=== PATIENT | male | born 1950 | race Caucasian/White ===

== ENCOUNTER 2018-12-20 19:12 | Inpatient (IN) | payer OTHER, MEDICARE ==
[2018-12-20] MEDS ORDERED: SODIUM CHLORIDE 0.9% 1,000 ML IV STA (19:21)
[2018-12-20 19:22] LABS: Glucose,Whole Blood 136 mg/dL (75-99)
--- NOTE | 2018-12-20 19:24 | ED ---
Neuro HPI - General Stated Complaint: Stroke Symptoms Time Seen by Provider: 12/20/18 19:18 Source: RN notes reviewed, old records reviewed - History of Present Illness Is the patient presenting with stroke symptoms?: Yes -: hour(s) (3) Initial Comments: This is a 60-year-old male the ER for evaluation of possible CVA history of CVA. Patient's brought in by EMS with apparent cause of slurred speech and facial droop. Symptoms about 2 hours prior to arrival. Patient currently has no worsening or change in symptoms. Same symptoms. Patient does have history of CVA per patient. Patient is relatively poor strain, denying headache now denying any trauma. Location: speech, right face History of same: Yes (CVA, different symptoms) Place: home Severity: mild Improves With: none Worsens With: none On Anticoagulants: Yes Context: gradual onset Associated Symptoms: denies other symptoms Treatments Prior to Arrival: none - Related Data Allergies/Adverse Reactions: Allergies Allergy/AdvReac Type Severity Reaction Status Date / Time Penicillins Allergy Unknown Verified 12/20/18 19:26 Review of Systems ROS Statement: Those systems with pertinent positive or pertinent negative responses have been documented in the HPI. ROS Other: All systems not noted in ROS Statement are negative. General Exam - General Exam Comments Initial Comments: NIH of 2 General appearance: alert, in no apparent distress Head exam: Present: atraumatic, normocephalic, normal inspection Eye exam: Present: normal appearance, PERRL, EOMI. Absent: scleral icterus, conjunctival injection, periorbital swelling ENT exam: Present: normal exam, mucous membranes moist Neck exam: Present: normal inspection. Absent: tenderness, meningismus, lymphadenopathy Respiratory exam: Present: normal lung sounds bilaterally. Absent: respiratory distress, wheezes, rales, rhonchi, stridor Cardiovascular Exam: Present: regular rate, normal rhythm, normal heart sounds. Absent: systolic murmur, diastolic murmur, rubs, gallop, clicks GI/Abdominal exam: Present: soft, normal bowel sounds. Absent: distended, tenderness, guarding, rebound, rigid Extremities exam: Present: normal inspection, full ROM, normal capillary refill. Absent: tenderness, pedal edema, joint swelling, calf tenderness Back exam: Present: normal inspection Neurological exam: Present: alert, oriented X3, CN II-XII intact Psychiatric exam: Present: normal affect, normal mood Skin exam: Present: warm, dry, intact, normal color. Absent: rash Stroke MDM - Lab Data Result diagrams: 12/20/18 19: Lab Results 12/20/18 12/20/18 12/20/18 Range/Units 19:20 19:22 19:22 PT 9.8 (9.0-12.0) sec INR 0.9 (<1.2) APTT 26.7 (22.0-30.0) sec Sodium 138 (137-145) mmol/L Potassium 4.1 (3.5-5.1) mmol/L Chloride 103 (98-107) mmol/L Carbon Dioxide 24 (22-30) mmol/L Anion Gap 11 mmol/L BUN 21 H (9-20) mg/dL Creatinine 1.05 (0.66-1.25) mg/dL Est GFR (CKD-EPI)AfAm 84 (>60 ml/min/1.73 sqM) Est GFR (CKD-EPI)NonAf 73 (>60 ml/min/1.73 sqM) Glucose 149 H (74-99) mg/dL POC Glucose (mg/dL) 136 H (75-99) mg/dL POC Glu Helper Coordinator ID Viviana Burris Calcium 9.6 (8.4-10.2) mg/dL Total Bilirubin 1.1 (0.2-1.3) mg/dL AST 29 (17-59) U/L ALT 26 (21-72) U/L Alkaline Phosphatase 72 (38-126) U/L Troponin I (0.000-0.034) ng/mL Total Protein 7.8 (6.3-8.2) g/dL Albumin 4.7 (3.5-5.0) g/dL 12/20/18 Range/Units 19:22 PT (9.0-12.0) sec INR (<1.2) APTT (22.0-30.0) sec Sodium (137-145) mmol/L Potassium (3.5-5.1) mmol/L Chloride (98-107) mmol/L Carbon Dioxide (22-30) mmol/L Anion Gap mmol/L BUN (9-20) mg/dL Creatinine (0.66-1.25) mg/dL Est GFR (CKD-EPI)AfAm (>60 ml/min/1.73 sqM) Est GFR (CKD-EPI)NonAf (>60 ml/min/1.73 sqM) Glucose (74-99) mg/dL POC Glucose (mg/dL) (75-99) mg/dL POC Glu Helper Coordinator ID Calcium (8.4-10.2) mg/dL Total Bilirubin (0.2-1.3) mg/dL AST (17-59) U/L ALT (21-72) U/L Alkaline Phosphatase (38-126) U/L Troponin I 0.013 (0.000-0.034) ng/mL Total Protein (6.3-8.2) g/dL Albumin (3.5-5.0) g/dL - NIH Stroke Scale 1a. Level of Consciousness: (0) alert 1b. LOC Questions: (0) answers correctly 1c. LOC Commands: (0) performs tasks correctly 2. Best Gaze: (0) normal 3. Visual: (0) no visual loss 4. Facial Palsy: (2) partial paralysis 5a. Motor Arm Left: (0) no drift 5b. Motor Arm Right: (0) no drift 6a. Motor Leg Left: (0) no drift 6b. Motor Leg Right: (0) no drift 7. Limb Ataxia: (0) absent 8. Sensory: (0) normal 9. Best Language: (0) no aphasia 10. Dysarthria: (0) normal 11. Extinction/Inattention: (0) no abnormality - Thrombolytic Inclusion/Exclusion Thrombolytic Inclusion Criteria: Ischemic Stroke Onset< 3h - Medical Decision Making 60 male with history of CVA presenting with recurrent CVA here today. Patient be admitted for medical management evaluation by neurology, aspirin. - Radiology Data Radiology results: report reviewed (CT brain CTA had not negative for acute disease), image reviewed - EKG Data -: EKG Interpreted by Me (EKG shows sinus rhythm rate of 75, [place] 106, QRS 90, QTc 477) Course Vital Signs 12/20/18 12/20/18 12/20/18 19:17 19:25 19:40 Temperature 97.6 F Pulse Rate 82 75 82 Respiratory 18 18 20 Rate Blood Pressure 175/110 165/96 164/108 O2 Sat by Pulse 96 98 96 Oximetry 12/20/18 12/20/18 12/20/18 19:55 20:10 20:25 Temperature Pulse Rate 78 70 70 Respiratory 18 18 18 Rate Blood Pressure 162/96 155/91 153/96 O2 Sat by Pulse 96 96 97 Oximetry - Reevaluation(s) Reevaluation #1: 12/20/18 20:39 Medical records reviewed Reevaluation #2: 12/20/18 20:39 Code stroke page on arrival Focused neurosurgery 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
[2018-12-20 19:46] LABS: Albumin 4.7 g/dL (3.5-5.0); Calcium 9.6 mg/dL (8.4-10.2); Potassium 4.1 mmol/L (3.5-5.1); Total Bilirubin 1.1 mg/dL (0.2-1.3); Total Protein 7.8 g/dL (6.3-8.2)
[2018-12-20 19:48] LABS: INR 0.9 (<1.2); Partial Thromboplastin Time 26.7 sec (22.0-30.0); Prothrombin Time 9.8 sec (9.0-12.0)
--- NOTE | 2018-12-20 19:54 | CT ---
EXAMINATION TYPE: CT brain wo con for TPA DATE OF EXAM: 12/20/2018 COMPARISON: 09/03/2009 HISTORY: Neuro deficits. CT DLP: 1220 mGycm Automated exposure control for dose reduction was used. FINDINGS: There is some cerebral cortical atrophy. There is mild patchy hypodensity in the white matter of both frontal lobes and left parietal lobe. There is no midline shift. There is no sign of intracranial he morrhage. The calvarium is intact. IMPRESSION: CEREBRAL ATROPHY AND WHITE MATTER ISCHEMIA. NO ACUTE INTRACRANIAL ABNORMALITY. THERE IS SOME PROGRESS ION COMPARED TO OLD EXAM.
--- NOTE | 2018-12-20 20:14 | XR ---
EXAMINATION TYPE: XR chest 1V portable DATE OF EXAM: 12/20/2018 COMPARISON: 09/03/2009 HISTORY: Facial droop TECHNIQUE: Single frontal view of the chest is obtained. FINDINGS: Heart appears slightly enlarged. There is coarsening of the lung markings. There is mild p ulmonary congestion. There are chest leads. There is no definite pleural effusion. Bony thorax appear s intact. IMPRESSION: Pulmonary fibrotic changes. No acute lung disease. No change compared to old exam.
[2018-12-20 20:48] LABS: Basophils % (A) 0 %; Eosinophils # (A) 0.1 k/uL (0-0.7); Eosinophils % (A) 1 %; HGB 15.7 gm/dL (13.0-17.5); Lymphocytes # (A) 1.5 k/uL (1.0-4.8); Lymphocytes % (A) 17 %; MCH 33.7 pg (25.0-35.0); MCHC 34.2 g/dL (31.0-37.0); MCV 98.8 fL (80.0-100.0); Monocytes # (A) 0.4 k/uL (0-1.0); Monocytes % (A) 5 %; Neutrophils # (A) 7.1 k/uL (1.3-7.7); Neutrophils % (A) 76 %; Platelet Count 206 k/uL (150-450); RBC 4.66 m/uL (4.30-5.90); RDW 14.3 % (11.5-15.5); WBC 9.3 k/uL (3.8-10.6)
--- NOTE | 2018-12-20 20:49 | CT ---
EXAMINATION TYPE: CT angio head neck DATE OF EXAM: 12/20/2018 HISTORY: Neuro deficits. COMPARISON: None CT DLP: 467.8 mGycm. Automated Exposure Control for Dose Reduction was Utilized. TECHNIQUE: CTA scan of the neck is performed with IV Contrast, patient injected with 50ml mL of Isov ue 370, axial images are obtained, coronal and sagittal reformatted images are reviewed. Three-D christina nstructed images are created on an independent workstation and reviewed. FINDINGS: There is normal branching pattern of the great vessels on the aortic arch. There is atherosclerotic p laque formation at the aortic arch. There are multiple superior mediastinal lymph nodes that measure up to 1.8 cm. There is bilateral arterial flow in the subclavian arteries. There is arterial flow in the common internal and external carotid arteries bilaterally. There is godwin que formation at the carotid artery bifurcations bilaterally and lumen narrowing estimated 50% of the proximal internal carotid arteries. There is arterial flow in both vertebral arteries which are fairly symmetric. There is suboptimal con trast density in the distal vertebral arteries. There is arterial flow in the basilar artery. There is arterial flow in the anterior middle and posterior cerebral arteries. There is arterial flow in the vertebrobasilar artery system. There is significant decreased flow in the left vertebral talha ry distally. There is enlargement of the right posterior communicating artery that measures 5 mm. The re is no mass effect. There is normal contrast opacification of the venous sinuses. IMPRESSION: Atherosclerotic plaque formation. There is approximate 50% stenosis of the origins of the internal carotid arteries bilaterally. There is progression of disease on the right side compared to old exam. There is no significant falk e on the left side carotid artery bifurcation. There is suboptimal evaluation of the distal left vertebral artery. There is possible significant arline nosis or occlusion of the distal left vertebral artery at the C1 level that is a change compared to o ld exam.. 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 No evidenc e of hemodynamic stenosis of the anterior middle and posterior cerebral arteries.
[2018-12-20] MEDS ORDERED: ATORVASTATIN 80 MG TAB PO SCH (21:00)
[2018-12-20] MEDS ORDERED: LORazepam 2 MG/ML INJ IV PRN ×3 (21:06)
[2018-12-20] MEDS ORDERED: THIAMINE 100 MG/ML 2 ML VIAL IM STA (21:06)
[2018-12-20] MEDS: THIAMINE 100 MG TAB PO SCH (21:38)
[2018-12-20] MEDS ORDERED: ASPIRIN 300 MG SUPP RECTAL SCH (23:30)
[2018-12-20] MEDS: SODIUM CHLORIDE 0.9% 1,000 ML IV SCH (23:44)
--- NOTE | 2018-12-20 23:55 | P.HPIM ---
History of Present Illness H&P Date: 12/20/18 Chief Complaint: Facial droop and slurred speech 68-year-old male with history of diabetes and CVA Patient presented to the hospital after experiencing sudden onset slurred s peech, generalized fatigue, and facial droop that his has noticed at around 5:30 PM this evening. Patient reports that he was at his baseline status of health before that. Patient is a very poor historian and his slurred speech is not helping with history taking. His started available at this point during the interview. patient reports sudden onset changes in his speech, and facial droop which she thought this could be a new stroke episode he denies being on any blood thinners he doesn't know his medication list at home but he knows he takes something for hypertension and cholesterol and also he takes aspirin. 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 Neurosurgery felt there is no immediate indications for any intervention at this point recommended to be monitored overnight and to be evaluated by neurology. Because stroke team recommended no thrombolytics at this time due to low NIH score of 2 at the time of evaluation . patient otherwise, denies any fever, chills, coughing, chest pain or shortness of breath. he denies any new onset numbness, tingling or weakness in his extremities. he denies any falling. he denies being on blood thinners. he admits to daily drinking and smoking. Review of Systems Pertinent positives as noted in HPI. All other systems were reviewed and are negative Past Medical History Past Medical History: CVA/TIA, Diabetes Mellitus, Eye Disorder, Hyperlipidemia, Hypertension Additional Past Medical History / Comment(s): hx of diabetes but states he lost weight and no longer is diabetic History of Any Multi-Drug Resistant Organisms: None Reported Past Surgical History: Appendectomy, Hernia Repair, Orthopedic Surgery, Tonsillectomy Additional Past Surgical History / Comment(s): right shoulder rotator cuff and tendon Past Anesthesia/Blood Transfusion Reactions: No Reported Reaction Past Psychological History: No Psychological Hx Reported Smoking Status: Current every day smoker Past Alcohol Use History: Daily Past Drug Use History: Marijuana - Past Family History family Family Medical History: No Reported History Medications and Allergies Home Medications and Allergies Comment(s): suresh does not have med list readily available at this point. he mentioned he takes a blood pressure and cholestrol medications Allergies Allergy/AdvReac Type Severity Reaction Status Date / Time Penicillins Allergy Unknown Verified 12/20/18 20:52 Childhood Physical Exam Vitals: Vital Signs Temp Pulse Pulse Pulse Resp BP BP 12/20/18 22:26 98.0 F 78 20 157/92 12/20/18 22:25 98 F 78 20 12/20/18 21:48 71 18 142/94 12/20/18 21:25 72 18 164/86 12/20/18 20:55 77 18 162/97 12/20/18 20:25 70 18 153/96 12/20/18 20:10 70 18 155/91 12/20/18 19:55 78 18 162/96 12/20/18 19:40 82 20 164/108 12/20/18 19:25 75 18 165/96 12/20/18 19:17 97.6 F 82 18 175/110 BP Pulse Ox 12/20/18 22:26 94 L 12/20/18 22:25 151/92 94 L 12/20/18 21:48 96 12/20/18 21:25 98 12/20/18 20:55 99 12/20/18 20:25 97 12/20/18 20:10 96 12/20/18 19:55 96 12/20/18 19:40 96 12/20/18 19:25 98 12/20/18 19:17 96 Intake and Output 12/20/18 12/20/18 12/21/18 14:59 22:59 06:59 Other: # Voids 0 Weight 86.636 kg Constitutional: No acute distress, conversant, pleasant, slurred speech Eyes: Anicteric sclerae, moist conjunctiva, uvula in midline Pupils equal round reactive to light ENMT: NC/AT Oropharynx clear, no erythema, exudates Neck: Supple, FROM, no masses, or JVD No carotid bruits No thyromegaly Lungs: Clear to auscultation Clear to percussion Normal respiratory effort, no accessory muscle use Cardiovascular: Heart regular in rate and rhythm, No murmurs, gallops, or rubs No peripheral edema Abdominal: Soft Nontender, no guarding, rebound or rigidity Abdomen moving with respiration Normoactive bowel sounds No hepatomegaly, No splenomegaly No palpable mass No abdominal wall hernia noted Skin: Normal temperature, tone, texture, turgor No induration No subcutaneous nodules No rash, lesions No ulcers Extremities: No digital cyanosis No clubbing Pedal pulses intact and symmetrical Radial pulses intact and symmetrical No calf tenderness Psychiatric: Alert and oriented to person, place and time Appropriate affect fair judgment Neuro Muscles Strength 5/5 in all 4 extremities except for left upper extremity with strength of 4/5 in the proximal and distal muscle group Sensation to light touch grossly present throughout Cranial nerves II-XII grossly intact except for left facial droop cranial nerve VII weakness over the left side No focal sensory deficits Cerebellar exam intact [id number] bilaterally, however finger nose testing was impaired over the left side Lymphatics: no palpable cervical or supraclavicular , or inguinal lymph nodes Results CBC & Chem 7: 12/20/18 19:22 12/20/18 19:22 Labs: Abnormal Lab Results - Last 24 Hours (Table) 12/20/18 12/20/18 Range/Units 19:20 19:22 BUN 21 H (9-20) mg/dL Glucose 149 H (74-99) mg/dL POC Glucose (mg/dL) 136 H (75-99) mg/dL Thrombosis Risk Factor Assmnt - Choose All That Apply Any of the Below Risk Factors Present?: No Other Risk Factors: Yes Each Risk Factor Represents 2 Points: Age 61-74 years Thrombosis Risk Factor Assessment Total Risk Factor Score: 2 Thrombosis Risk Factor Assessment Level: Low Risk Assessment and Plan Assessment: 68-year-old male with history of hypertension, CVA, diabetes. Admitted as an inpatient with anticipated length of stay more than 48 hours due to acute stroke, code stroke was activated and TPA was not given due to low NIH score at time of evaluation. Neurosurgery evaluated CT angiogram of the head with no recommendations for any immediate intervention at this point. Plan: Acute ischemic stroke Hypertension Diabetes mellitus Alcohol dependence Hyperlipidemia Coast stroke activated to pain not given due to low NIH score of 2 at time of evaluation Continue with aspirin and statin Nothing by mouth status Speech evaluation PT/OT Neurochecks around the clock Neurology evaluation Check echocardiogram of the heart Follow a.m. labs Hold BP medications for permissive hypertension at this point Verified home meds in a.m. Insulin sliding scale Alcohol withdrawal precautions, IV fluid hydration and thiamine. 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
[2018-12-21 05:35] LABS: Glucose,Whole Blood 124 mg/dL (75-99)
[2018-12-21] MEDS: SODIUM CHLORIDE 0.9% 1,000 ML IV SCH (06:45)
[2018-12-21] MEDS: THIAMINE 100 MG TAB PO SCH (06:45)
[2018-12-21 06:46] LABS: Basophils % (A) 0 %; Eosinophils % (A) 0 %; HCT 40.2 % (39.0-53.0); HGB 13.7 gm/dL (13.0-17.5); Lymphocytes # (A) 0.9 k/uL (1.0-4.8); Lymphocytes % (A) 7 %; MCH 33.4 pg (25.0-35.0); MCHC 34.2 g/dL (31.0-37.0); MCV 97.7 fL (80.0-100.0); Mean Platelet Volume 8.2; Monocytes # (A) 0.5 k/uL (0-1.0); Monocytes % (A) 4 %; Neutrophils % (A) 88 %; Platelet Count 203 k/uL (150-450); RBC 4.11 m/uL (4.30-5.90); RDW 13.6 % (11.5-15.5); WBC 12.4 k/uL (3.8-10.6)
[2018-12-21 06:57] LABS: ALT 25 U/L (21-72); AST 31 U/L (17-59); African American GFR (CKD) >90 (>60 ml/min/1.73 sqM); Albumin 4.4 g/dL (3.5-5.0); Alkaline Phosphatase 60 U/L (38-126); Anion Gap 11 mmol/L; Blood Urea Nitrogen 18 mg/dL (9-20); Calcium 9.1 mg/dL (8.4-10.2); Carbon Dioxide 24 mmol/L (22-30); Chloride 104 mmol/L (98-107); Cholesterol 134 mg/dL (<200); Glucose 117 mg/dL (74-99); HDL Cholesterol 55 mg/dL (40-60); LDL Cholesterol,Calculated 68 mg/dL (0-99); Potassium 3.7 mmol/L (3.5-5.1); Sodium 139 mmol/L (137-145); Total Bilirubin 1.1 mg/dL (0.2-1.3); Total Protein 7.3 g/dL (6.3-8.2); Triglycerides 56 mg/dL (<150)
[2018-12-21] MEDS ORDERED: INSULIN ASPART (NovoLOG) 100 UNIT/ML VIAL SQ SCH (07:30)
[2018-12-21] MEDS ORDERED: MULTIVITAMINS, THERA 1 EACH TAB PO SCH (09:00)
[2018-12-21 09:54] VITALS: RESP 18
--- NOTE | 2018-12-21 10:06 | P.CRDCN ---
History of Present Illness Consult date: 12/21/18 History of present illness: This is a 68-year-old gentleman with history of hypertension, hypercholesterolemia and possible CVA about 6 years ago, suddenly started having generalized weakness and difficulty with speech and swallowing. Paramedics were called and patient was brought to the hospital. The findings were consistent with a left facial droop, dysarthria and difficulty swallowing consistent with acute CVA. Patient is able to move all the extremities. She denies any chest pain. His have significant problem with swallowing. He does have some rhonchi with breathing which could be from aspiration. He denied any chest pain. We're asked to see the patient because of abnormal troponin values. The troponin values aren't consistent with non-ST elevation myocardial infarction. Rule out the possibility of stress-induced cardiomyopathy in the setting of CVA. We're going to get an echocardiogram done. May also consider for anticoagulation therapy, if cleared by neurology. Further recommendations depend upon the current course. A cardiac catheterization may be necessary to rule out underlying ischemic heart disease. Review of Systems As per the chart Past Medical History Past Medical History: CVA/TIA, Diabetes Mellitus, Eye Disorder, Hyperlipidemia, Hypertension Additional Past Medical History / Comment(s): hx of diabetes but states he lost weight and no longer is diabetic History of Any Multi-Drug Resistant Organisms: None Reported Past Surgical History: Appendectomy, Hernia Repair, Orthopedic Surgery, Tonsillectomy Additional Past Surgical History / Comment(s): right shoulder rotator cuff and tendon Past Anesthesia/Blood Transfusion Reactions: No Reported Reaction Past Psychological History: No Psychological Hx Reported Smoking Status: Current every day smoker Past Alcohol Use History: Daily Past Drug Use History: Marijuana - Past Family History family Family Medical History: No Reported History Medications and Allergies Home Medications Medication Instructions Recorded Confirmed Type Aspirin 81 mg PO DAILY 12/21/18 12/21/18 History Cholecalciferol [Vitamin D3 (25 1,000 unit PO DAILY 12/21/18 12/21/18 History Mcg = 1000 Iu)] Cyanocobalamin [Vitamin B-12] 500 mcg PO DAILY 12/21/18 12/21/18 History Hydrochlorothiazide [Hydrodiuril] 25 mg PO DAILY 12/21/18 12/21/18 History Losartan Potassium 100 mg PO DAILY 12/21/18 12/21/18 History Lovastatin [Mevacor] 20 mg PO DAILY 12/21/18 12/21/18 History [place]-3 Fatty Acids/Fish Oil [Fish 2,000 mg PO 12/21/18 History Oil 1,000 mg Softgel] Allergies Allergy/AdvReac Type Severity Reaction Status Date / Time Penicillins Allergy Unknown Verified 12/20/18 20:52 Childhood Physical Exam Vitals: Vital Signs Temp Pulse Pulse Pulse Resp BP BP 12/21/18 08:17 97.0 F L 82 18 145/84 12/21/18 04:00 97.6 F 79 20 150/79 12/21/18 00:00 97.6 F 79 20 155/90 12/20/18 22:26 98.0 F 78 20 157/92 12/20/18 22:25 98 F 78 20 12/20/18 22:00 78 20 12/20/18 21:48 71 18 142/94 12/20/18 21:25 72 18 164/86 12/20/18 20:55 77 18 162/97 12/20/18 20:25 70 18 153/96 12/20/18 20:10 70 18 155/91 12/20/18 19:55 78 18 162/96 12/20/18 19:40 82 20 164/108 12/20/18 19:25 75 18 165/96 12/20/18 19:17 97.6 F 82 18 175/110 BP Pulse Ox 12/21/18 08:17 93 L 12/21/18 04:00 94 L 12/21/18 00:00 97 12/20/18 22:26 94 L 12/20/18 22:25 151/92 94 L 12/20/18 22:00 12/20/18 21:48 96 12/20/18 21:25 98 12/20/18 20:55 99 12/20/18 20:25 97 12/20/18 20:10 96 12/20/18 19:55 96 12/20/18 19:40 96 12/20/18 19:25 98 12/20/18 19:17 96 Intake and Output 12/20/18 12/21/18 12/21/18 22:59 06:59 14:59 Intake Total 800 0 Output Total 300 325 Balance 500 -325 Intake: Intake, IV Titration 800 Amount Sodium Chloride 0.9% 1, 800 000 ml @ 100 mls/hr IV . Q10H [facility] Rx#:[id number] Oral 0 Output: Urine 300 325 Other: Voiding Method Urinal Urinal Urinal # Voids 0 1 Weight 86.636 kg 90.5 kg GENERAL EXAM: Patient is alert and oriented. He appears to be of difficulty swallowing, coughing HEENT: Normocephalic. Normal reaction of pupils, equal size, normal range of extraocular motion. No erythema or exudates in the throat. NECK: No masses, no nuchal rigidity. CHEST: No chest wall deformity. LUNGS: Rhonchi HEART: S1 and S2 normal with no audible mumurs or gallops. Regular rhythm, femorals equal on both sides.. ABDOMEN: No hepatosplenomegaly, normal bowel sounds, no guarding or rigidity. SKIN: No rashes CENTRAL NERVOUS SYSTEM: Patient is a left facial droop. Dysarthric. Moving all extremities EXTREMITIES: No cyanosis, clubbing or edema. Results 12/21/18 06:31 12/21/18 06:31 Cardiac Enzymes 12/20/18 12/20/18 12/21/18 Range/Units 19:22 19:22 01:00 AST 29 (17-59) U/L Troponin I 0.013 0.329 H* (0.000-0.034) ng/mL 12/21/18 12/21/18 Range/Units 06:31 06:31 AST 31 (17-59) U/L Troponin I 0.613 H* (0.000-0.034) ng/mL Coagulation 12/20/18 Range/Units 19:22 PT 9.8 (9.0-12.0) sec APTT 26.7 (22.0-30.0) sec Lipids 12/21/18 Range/Units 06:31 Triglycerides 56 (<150) mg/dL Cholesterol 134 (<200) mg/dL HDL Cholesterol 55 (40-60) mg/dL CBC 12/20/18 12/21/18 Range/Units 19:22 06:31 WBC 9.3 12.4 H (3.8-10.6) k/uL RBC 4.66 4.11 L (4.30-5.90) m/uL Hgb 15.7 13.7 (13.0-17.5) gm/dL Hct 46.0 40.2 (39.0-53.0) % Plt Count 206 203 (150-450) k/uL Comprehensive Metabolic Panel 12/20/18 12/21/18 Range/Units 19:22 06:31 Sodium 138 139 (137-145) mmol/L Potassium 4.1 3.7 (3.5-5.1) mmol/L Chloride 103 104 (98-107) mmol/L Carbon Dioxide 24 24 (22-30) mmol/L BUN 21 H 18 (9-20) mg/dL Creatinine 1.05 0.92 (0.66-1.25) mg/dL Glucose 149 H 117 H (74-99) mg/dL Calcium 9.6 9.1 (8.4-10.2) mg/dL AST 29 31 (17-59) U/L ALT 26 25 (21-72) U/L Alkaline Phosphatase 72 60 (38-126) U/L Total Protein 7.8 7.3 (6.3-8.2) g/dL Albumin 4.7 4.4 (3.5-5.0) g/dL Current Medications Generic Name Dose Route Start Last Admin Trade Name Freq PRN Reason Stop Dose Admin Aspirin 300 mg 12/20/18 23:30 12/20/18 23:56 Aspirin RECTAL 300 mg Q24H STEPHANI Administration Atorvastatin Calcium 80 mg 12/20/18 21:00 12/20/18 21:11 Lipitor PO Not Given HS STEPHANI Sodium Chloride 1,000 mls @ 100 mls/hr 12/20/18 20:45 12/21/18 06:45 Saline 0.9% IV 100 mls/hr .Q10H STEPHANI Administration Insulin Aspart 0 unit 12/21/18 07:30 12/21/18 06:44 Novolog SQ Not Given ACHS STEPHANI Protocol Lorazepam 1 mg 12/20/18 21:06 Ativan IV Q2HR PRN CIWA 8 or 9 Lorazepam 1 mg 12/20/18 21:06 Ativan IV Q1HR PRN CIWA 10 to 15 Lorazepam 2 mg 12/20/18 21:06 Ativan IV 12/22/18 21:06 Q10M PRN CIWA 16 or higher Multivitamins 1 each 12/21/18 09:00 12/21/18 09:55 Theragran PO Not Given DAILY STEPHANI Thiamine HCl 100 mg 12/20/18 17:00 12/21/18 06:45 Vitamin B-1 PO Not Given BID-W/MEALS STEPHANI Intake and Output 12/20/18 12/21/18 12/21/18 22:59 06:59 14:59 Intake Total 800 0 Output Total 300 325 Balance 500 -325 Intake: Intake, IV Titration 800 Amount Sodium Chloride 0.9% 1, 800 000 ml @ 100 mls/hr IV . Q10H [facility] Rx#:[id number] Oral 0 Output: Urine 300 325 Other: Voiding Method Urinal Urinal Urinal # Voids 0 1 Weight 86.636 kg 90.5 kg 12/21/18 06:31 12/21/18 06:31 EKG Interpretations (text) Sinus rhythm Assessment and Plan (1) Non-ST elevation MD (NSTEMI) Current Visit: Yes Status: Acute Code(s): I21.4 - NON-ST ELEVATION (NSTEMI) MYOCARDIAL INFARCTION SNOMED Code(s): 31881358 (2) Essential hypertension Current Visit: Yes Status: Acute Code(s): I10 - ESSENTIAL (PRIMARY) HYPERTENSION SNOMED Code(s): 67539508 (3) Cerebrovascular accident Current Visit: Yes Status: Acute Code(s): I63.9 - CEREBRAL INFARCTION, UNSPECIFIED SNOMED Code(s): 968949281 (4) Hypercholesterolemia Current Visit: Yes Status: Acute Code(s): E78.00 - PURE HYPERCHOLESTEROLEMIA, UNSPECIFIED SNOMED Code(s): 53679920 Plan: At this point I will get an echocardiogram to assess LV function and rule out any wall motion abnormalities. Nitropaste 1 inch every 8 hours will be added. We'll also treat him with beta blockers, aspirin, and also heparin when cleared by neurology. Patient may need a cardiac catheterization to rule out underlying ischemic heart disease
--- NOTE | 2018-12-21 11:24 | MR ---
EXAMINATION TYPE: MR brain wo con DATE OF EXAM: 12/21/2018 COMPARISON: CT brain 12/20/2018 HISTORY: Stroke-no contrast given,patient unable to continue TECHNIQUE: T1-weighted sagittal, T2, FLAIR, and diffusion axial views of the brain are submitted. Th e patient could not continue with the exam and therefore limited study is presented FINDINGS: There is a large area of abnormal signal on diffusion within the left cerebellum extending into the m edulla. Small focus of abnormal signal involving the right cerebellar hemisphere not excluded. Report a medially called to patient's nurse. Mild to moderate generalized degenerative change with both diffuse and focal areas of nonspecific abn ormal signal in the white matter. Findings likely in the basis of remote microvascular ischemia. Craniocervical junction maintained. Sella turcica has a normal appearance. No cerebellopontine angle mass. IMPRESSION: 1. Large area of abnormal signal involving the left cerebellum and small segment of the left posterio r margin of the medulla compatible with acute ischemia. There is also a small focus of abnormal signa l in the right cerebellar hemisphere also suspicious for a small focal area of acute ischemia. Report immediately called to the patient's nurse. 2. Degenerative and nonspecific white matter changes most typical remote microvascular ischemia.
[2018-12-21 11:43] LABS: Glucose,Whole Blood 123 mg/dL (75-99)
[2018-12-21] MEDS ORDERED: SCOPOLAMINE 1.5MG/72HR PATCH TRANSDERM STA (11:57)
--- NOTE | 2018-12-21 12:34 | XR ---
EXAMINATION TYPE: XR chest 1V portable DATE OF EXAM: 12/21/2018 COMPARISON: Prior chest x-ray 12/20/2018 HISTORY: Shortness of breath TECHNIQUE: Single frontal view of the chest is obtained. FINDINGS: Findings are similar to prior exam. Central vascularity and interstitium are increased. He art is enlarged. No pneumothorax or pleural effusion. Retrocardiac density suspected. IMPRESSION: Interstitial lung disease and cardiomegaly, difficult to exclude interstitial edema.
--- NOTE | 2018-12-21 12:36 | P.DS ---
Providers Date of admission: 12/20/18 20:36 Expected date of discharge: 12/21/18 Attending physician: Joshua Trejo MD Consults: 12/20/18 20:37 Consult Physician Routine Consulting Provider: Cale Vazquez Consult Reason/Comments: cva Do you want consulting provider notified?: Yes 12/21/18 02:45 Consult Physician Routine Consulting Provider: Pee Simon Consult Reason/Comments: elevated troponin Do you want consulting provider notified?: Yes Primary care physician: Physician Nonstaff Hospital Course: Discharge Diagnosis: 1. Acute ischemic CVA left cerebellar, left medulla 2. Mildly elevated troponin likely secondary to ischemic event 3. Hypertension 4. Dyslipidemia 5. Diabetes mellitus-no longer on medications after weight loss 6. Tobacco abuse 7. Chronic alcohol use-2 beers daily 8. History of CVA 9. History of eye disorder Hospital Course: Patient is a 68-year-old male past medical history of prior stroke, diabetes, hypertension, and dyslipidemia who presented to the emergency department with complaints of slurred speech, fatigue, and facial droop. In the emergency room a code stroke was called. Apparently the [place] stroke network was activated. Patient was found have an NIH stroke scale 2. He underwent a CT head which showed no acute ischemic changes but did show some cerebral atrophy. 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 He was unable to pass a bedside swallow evaluation he was given 300 mg a rectal aspirin. He was admitted for further stroke evaluation. At that point in time and did not recommend TPA. 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 MRI of the brain revealed left cerebellar stroke. Cholesterol profile is within normal limits. He is known to have troponin elevation which was suspected to be secondary to his stroke. He did not have any symptoms consistent with acute ischemia. His troponin also remained less than 1. He was made nothing by mouth as he is unable to pass a bedside swallow evaluation. Neurology recommended transfer to a center with neurosurgey as patient has high risk of cerebral edema. Echo was ordered but not obtained prior to transfer as he was seen by cardiology. Nitro past cancelled though initially ordered as he did not want to drop his blood pressure with his acute CVA. Initial thoughts were a heparin drip, however after discussion with cardiology was felt that his troponin elevation was likely secondary to his stroke as he was not having any anginal symptoms. Arrangement were made for transfer to [facility]. Patient seen and examined at bedside. No chest pain, no sob, + difficulty dealing with secretions, feeling off balance but denies dizziness. Vital signs reviewed and stable. General: non toxic, no distress, appears at stated age, disheveled Derm: warm, dry Head: atraumatic, normocephalic, symmetric Eyes: EOMI, no lid lag, anicteric sclera Mouth: no lip lesion, mucus membranes moist, poor oral hygiene Cardiovascular: S1S2 reg, no murmur, positive posterior tibial pulse bilateral, Lungs: CTA bilateral, no rhonchi, no rales , no accessory muscle use Abdominal: soft, nontender to palpation, no guarding, no appreciable organomegaly Ext: no gross muscle atrophy, no edema, no contractures Neuro: Left-sided facial droop, tongue deviated to the right, uvula does not elevated on the right-hand side, + syndrome, left upper extremity 4 out of 5, right upper extremity 5 out of 5, bilateral lower extremities 5 out of 5. Patient unable to ambulate secondary to severe ataxia. Poor finger to nose. Severe dysarthria Psych: Alert, oriented, appropriate affect A total of 60 minutes of time were spent preparing this complex discharge summary . Pertinent Studies: MRI brain- area of ischemia left cerebellum, small segment of the left posterior margin of the medulla. small area of focus consistent with acute ischemia right cerebellar hemisphere. 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 CT head: Cerebral atrophy and white matter ischemia, no acute intracranial abnormality Chest [id number] fibrotic changes, no acute lung disease Patient Condition at Discharge: Serious Plan - Discharge Summary Discharge Rx Participant: No New Discharge Prescriptions: No Action Lovastatin [Mevacor] 20 mg PO DAILY Losartan Potassium 100 mg PO DAILY Hydrochlorothiazide [Hydrodiuril] 25 mg PO DAILY Cyanocobalamin [Vitamin B-12] 500 mcg PO DAILY Cholecalciferol [Vitamin D3 (25 Mcg = 1000 Iu)] 1,000 unit PO DAILY Aspirin 81 mg PO DAILY [place]-3 Fatty Acids/Fish Oil [Fish Oil 1,000 mg Softgel] 2,000 mg PO Discharge Medication List Aspirin 81 mg PO DAILY 12/21/18 [History] Cholecalciferol [Vitamin D3 (25 Mcg = 1000 Iu)] 1,000 unit PO DAILY 12/21/18 [History] Cyanocobalamin [Vitamin B-12] 500 mcg PO DAILY 12/21/18 [History] Hydrochlorothiazide [Hydrodiuril] 25 mg PO DAILY 12/21/18 [History] Losartan Potassium 100 mg PO DAILY 12/21/18 [History] Lovastatin [Mevacor] 20 mg PO DAILY 12/21/18 [History] [place]-3 Fatty Acids/Fish Oil [Fish Oil 1,000 mg Softgel] 2,000 mg PO 12/21/18 [History] Follow up Appointment(s)/Referral(s): Nonstaff,Physician [Primary Care Provider] - 1-2 days
[2018-12-21 12:43] VITALS: BP 139/80; PULSE 79; TEMP 97.4
--- NOTE | 2018-12-21 13:08 | CONS ---
CONSULTATION DATE OF SERVICE: 12/21/2018 REFERRING PHYSICIAN: Dr. Bonilla HISTORY OF PRESENT ILLNESS: Thank you for allowing me to evaluate Maximo Walters who is 68-year-old right- handed white male who presented to [facility] for evaluation of symptoms which began at 5:30 p.m. on the day of admission. The patient's supplements the history and she states that the patient was sitting at home and told her that he "did not feel good". She states he tried to drink, but began to choke, was spitting and was trying to get rid of phlegm. She states his speech became slurred, his left eye drooped and she subsequently contacted emergency services to bring the patient to the hospital for further evaluation and treatment. She states he seemed to have difficulty moving any extremity initially. 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 He states the diplopia seemed more prominent than usual. He has had significant difficulty swallowing, and in fact has had a large amount of oral secretions during the hospitalization. Nursing staff and the patient have been suctioning and he has been trying to expel these. He denied noting focal weakness or numbness in the extremities or associated hiccups. He was taking aspirin 81 mg q. day at the time of this event. The patient's states that he had an event 6 years ago, but she is not sure if this was a heart attack or a stroke. She states he had no residual deficit from that event. He has no previous history of seizures. ALLERGIES: PENICILLIN. HOME MEDICATIONS: B12, vitamin D, aspirin 81 mg q. day, Lovastatin, losartan, HydroDIURIL, and omega-3. PAST MEDICAL HISTORY: Hypertension, hyperlipidemia, tobacco abuse, daily alcohol consumption and the patient has a history of diabetes mellitus, although apparently with weight loss, was able to discontinue oral medications and has been diet controlled over the past 2 years. PAST SURGICAL HISTORY: Appendectomy, left ankle surgery, left shoulder surgery, umbilical surgery, and 2 eye surgeries (likely strabismus) as a child. SOCIAL HISTORY: The patient smokes 1 pack per day and has smoked at least over the past 30 years. He reports drinking 2 beers and 10 shots of bourbon per day. He reports occasional marijuana use. He is with 4 children and lives in a house with his . He occasionally uses a single prong cane to ambulate. FAMILY HISTORY: The patient's parents are . Father with leukemia and mother of "old age". There is no family history of epilepsy, Parkinson's or other neurologic disease. REVIEW OF SYSTEMS: Fourteen systems are reviewed and no additional points are identified. The review of systems documented in history and physical. PHYSICAL EXAMINATION: Upon my arrival to the patient's room, he was lying in bed, was at the bedside. He is an accurate historian, although speech is so dysarthric it is difficult to understand him at times. The patient is clearly struggling with swallowing, having large amounts of oral secretions, which he is suctioning and spitting out. The patient is currently under aspiration precautions and head of the bed is up. The patient appears unkempt, affect is mildly anxious in the setting of his swallowing difficulties and the patient appears older than stated age. VITAL SIGNS: Blood pressure is 145/84 with pulse of 82, respiratory rate 18, temperature is 97, weight is 90.5 kg on 6 feet 1 inch frame. SKIN AND EXTREMITIES: Mild arthritic changes are noted in the hands and feet. Postsurgical changes are noted at the left ankle. HEAD AND NECK: No signs of trauma. Neck is supple without meningeal signs. Bruits are difficult to auscultate due to harsh breath sounds. HEART: Regular rate and rhythm. HIGHER CORTICAL FUNCTION: MENTAL STATUS: Patient was alert, oriented to self. He knew he was at [facility]. He knew the floor, year, month, date, and could name the current president. He was able to name, repeat and read. There was no right and left disorientation, finger agnosia, extinction to double simultaneous stimulation, although the patient's speech is markedly dysarthric. As described above, the patient is having significant old difficulty swallowing and clearing oral secretions. CRANIAL NERVES II through XII: There is anisocoria with right pupil being of 3 mm, left being 2 mm, each are reactive to light, no afferent pupillary defect. Visual david were intact to confrontation with each eye assessed individually. III, IV, : Left- sided ptosis, in addition to the miosis, this is consistent with Pedro's syndrome. At baseline, the patient's right eye is hypertrophic. It should be noted the patient has a history of a "wandering eye" and has had previous strabismus surgeries, making it difficult to know his baseline eye position. Within these constraints, the patient's eyes would move in all cardinal positions, in upgaze the left eye developed vertical nystagmoid movements. V: Pinprick and light touch intact in all 3 divisions. Motor of V intact. VII: There is flattening of the left nasolabial fold. VII: Acuity produced finger rub. Patient wears hearing aids. At IX, X, there was a palatal asymmetry only raising on the right. XI: Shoulder shrug was delayed on the left. XII: Tongue protruded midline without fasciculation or atrophy. MOTOR EXAMINATION: When the patient extends his arms out, at baseline, the left upper extremity start in a lower position but did not further drift. There was reduced bulk in the hand intrinsic muscles with normal tone and no involuntary movements are noted. Strength is 5/5 throughout except at the interossei which were 4+ over 5 bilaterally. SENSORY: Intact to pinprick, light touch in all extremities per patient. REFLEXES: The patient is areflexic throughout. Plantar responses withdrawal bilaterally. Patel's is absent. COORDINATION: There is clear ataxia with left jqqarp-az-[id number] movements not present on the right. In fact, when the patient goes to touch his nose, he strikes himself in the face. There is mild dysmetria with left [id number]-[id number]. Rapid alternating movements are slowed on the left with finger and foot tapping. DIAGNOSTIC TESTING: The patient had a CT scan of the brain completed without contrast in the emergency room, which demonstrated atrophy, white matter ischemic change but no acute pathology was identified. 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 Telemetry has revealed normal sinus rhythm. The patient's lab work demonstrates a white blood count of 12.4, hemoglobin of 13.7, platelet count 203. Sodium 139, potassium 3.7, BUN 18 with a creatinine of 0.9. INR 0.9. ALT 25, AST 31. Calcium 9.6. Troponin has been as high as 0.613 (cardiology has been consulted). Chest x-ray revealed pulmonary fibrotic changes, but no acute pathology. IMPRESSION: 1. Abrupt onset of dysarthria/dysphagia with findings on examination of left- sided ataxia, left palatal paralysis, left Pedro syndrome, consistent with a left lateral medullary infarct (Wallenberg syndrome). Etiology is likely secondary to large vessel atherosclerotic disease and CTA demonstrates decreased flow versus occlusion of the distal left vertebral artery. Risk factors for stroke include hypertension, diabetes mellitus, tobacco abuse, daily alcohol consumption, male sex and age. The patient was on aspirin 81 mg q. day at the time of this event. 2. Elevated troponin, defer to Cardiology. 3. 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 4. Asymptomatic 50% stenosis of bilateral internal carotid arteries per CTA. 5. History of strabismus surgery x2 as a child. RECOMMENDATION: 1. Case was discussed with the patient, his , Cardiology, and Internal Medicine. Just as this report was being dictated, the patient's MRI of the brain returned demonstrating a left lateral medullary infarct with large left cerebellar infarct (PICA distribution) and in the setting of the significant cerebellar involvement and risk of brainstem/4th ventricle compression (with resultant hydrocephalus), the patient will require neurosurgical backup, which is not available at this facility; therefore, the patient will require transfer to a facility with neurosurgical backup. 2. The patient is maintained on telemetry and echocardiogram was ordered, although the patient will now be transferred. 3. Blood thinning regimen will be determined based on the patient's workup. 4. Risk factor modification. The patient is maintained on lovastatin, present cholesterol 134 with an LDL of 68. 5. Avoid hypotension/hyperglycemia. 6. Physical, occupational, speech therapy will be involved, the patient will likely be a good rehab candidate. 7. The patient may require PEG tube placement if his swallowing does not improve. 8. Aspiration precautions and elevate the head of the bed. 9. At the transfer facility, Neurosurgery will likely be involved and can also address the 5 mm fusiform aneurysm involving the right posterior communicating artery. 10.Agree with thiamine/multivitamin and the patient has been placed under alcohol withdrawal protocol. Thank you for allowing me to participate in the care of your patient. MMODL / IJN: [id number] / GABRIELLA
--- NOTE | 2018-12-21 18:25 | ECHOF ---
Referral Reason:stroke MEASUREMENTS -------- HEIGHT: 185.4 cm WEIGHT: 90.3 kg BP: 150/79 RVIDd: 2.7 cm (< 3.3) IVSd: 1.1 cm (0.6 - 1.1) LVIDd: 5.7 cm (3.9 - 5.3) LVPWd: 1.1 cm (0.6 - 1.1) IVSs: 1.4 cm LVIDs: 4.8 cm LVPWs: 1.4 cm LA Diam: 3.1 cm (2.7 - 3.8) LAESV Index (A-L): 21.41 ml/m MV E Gerry: 0.72 m/s MV DecT: 74 ms MV A Gerry: 1.07 m/s MV E/A Ratio: 0.68 AV maxP.49 mmHg AV meanP.42 mmHg FINDINGS -------- Sinus rhythm. This was a technically difficult study with suboptimal views. The left ventricle is mildly dilated. There is mild concentric left ventricular hypertrophy. Over all left ventricular systolic function is severely impaired with, an EF between 25 - 30 %. Possible Takotsubo. Mid anterior LV wall motion is akinetic. Mid lateral LV wall motion is akinetic. Mid anteroseptal LV wall motion is akinetic. Apical anterior LV wall motion is akinetic. Apical lateral LV wall motion is akinetic. Apical septum LV wall motion is akinetic. The right ventricle is normal in size. Normal LA size by volume 22+/-6 ml/m2. The right atrial size is normal. 5.0mg of Lumason was utilized for enhancement of images There is mild aortic valve sclerosis. The mitral valve is normal. No mitral regurgitation. The tricuspid valve appears structurally normal. Trace tricuspid regurgitation present. The pulmonic valve was not well visualized. There is no pulmonic regurgitation present. The aortic root, ascending aorta and aortic arch are normal. The aortic root size is normal. The inferior vena cava is moderately dilated. There is no pericardial effusion. CONCLUSIONS -------- 1. Sinus rhythm. 2. This was a technically difficult study with suboptimal views. 3. The left ventricle is mildly dilated. 4. There is mild concentric left ventricular hypertrophy. 5. Overall left ventricular systolic function is severely impaired with, an EF between 25 - 30 %. 6. Possible Takotsubo. 7. Mid anterior LV wall motion is akinetic. 8. Mid lateral LV wall motion is akinetic. 9. Mid anteroseptal LV wall motion is akinetic. 10. Apical anterior LV wall motion is akinetic. 11. Apical lateral LV wall motion is akinetic. 12. Apical septum LV wall motion is akinetic. 13. Normal LA size by volume 22+/-6 ml/m2. 14. 5.0mg of Lumason was utilized for enhancement of images 15. There is mild aortic valve sclerosis. 16. The mitral valve is normal. 17. The tricuspid valve appears structurally normal. 18. Trace tricuspid regurgitation present. 19. The pulmonic valve was not well visualized. 20. The aortic root, ascending aorta and aortic arch are normal. 21. The aortic root size is normal. 22. The inferior vena cava is moderately dilated. 23. There is no pericardial effusion. BUCKLE FRAME SHAPER: Charlotte Alarcon RDCS
== END 2018-12-21 12:40 | disposition short-term general hospital (02) | DRG 66 ==
LOC: EC 19:12 → 3SCARD 20:36
PROVIDERS: ADMIT Internal Medicine; ATTEND Internal Medicine
DX: I63.9 Cerebral infarction, unspecified (principal); R29.702 NIHSS score 2; R47.81 Slurred speech; R29.810 Facial weakness; R13.10 Dysphagia, unspecified; R47.1 Dysarthria and anarthria; I10 Essential (primary) hypertension; E78.5 Hyperlipidemia, unspecified; E11.9 Type 2 diabetes mellitus without complications; I65.23 Occlusion and stenosis of bilateral carotid arteries; G46.3 Brain stem stroke syndrome; E78.00 Pure hypercholesterolemia, unspecified; I67.1 Cerebral aneurysm, nonruptured; G90.2 Horner's syndrome; F10.20 Alcohol dependence, uncomplicated; F17.210 Nicotine dependence, cigarettes, uncomplicated; R40.2142 Coma scale, eyes open, spontaneous, at arrival to emergency department; R40.2252 Coma scale, best verbal response, oriented, at arrival to emergency department; R40.2362 Coma scale, best motor response, obeys commands, at arrival to emergency department; Z86.73 Personal history of transient ischemic attack (TIA), and cerebral infarction without residual deficits; Z79.82 Long term (current) use of aspirin; Z79.899 Other long term (current) drug therapy; Z80.6 Family history of leukemia
CPT/HCPCS: 36415; 70450; 70496; 70498; 70551; 71045; 80053; 80061; 84484; 85025; 85610; 85730; 93005; 93306; 96360; 99285